=== PATIENT | male | born 1970 | race Caucasian/White ===

== ENCOUNTER 2020-01-25 19:45 | Emergency (ER) | payer SELFPAY ==
[~2020-01-25] VITALS: Ht 188 cm; Wt 128.8 kg
--- NOTE | 2020-01-25 20:03 | Emergency Department Note ---
History of Present Illnes History of Present Illness Chief Complaint: Skin Rash or Abscess History of Present Illness This is a 49 year old male presents to the ED for one day h/o of L LE discoloratoin. Onset (how long ago): day(s) (1) Radiation: Reports non-radiation Severity: moderate Onset quality: sudden Duration (how long): day(s) (1) Timing of current episode: constant Progression: worsening Chronicity: new Context: Denies recent illness Relieving factors: none Exacerbating factors: none Associated symptoms: Denies denies other symptoms, Denies confusion, Denies chest pain, Denies cough, Denies diaphoresis, Denies fever/chills, Denies headaches, Denies loss of appetite, Denies malaise, Denies nausea/vomiting, Denies rash, Denies seizure, Denies shortness of breath, Denies syncope, Denies weakness, Denies other Treatments prior to arrival: none Past Medical/Family History Physician Review I have reviewed the patient's past medical and family history. Any updates have been documented here. Past Medical History Recent Fever: No Clinical Suspicion of Infectio: Yes Past Medical History: Hypertension Past Surgical History: None Social History Smoking Cessation: Current every day smoker Alcohol Use: Occasional Any Illegal Drug Use: No Physically hurt or threatened: No Other Any Pre-Existing Lines (PICC,: No Review of Systems Review of Systems Constitutional: Reports fever EENTM: Reports no symptoms Cardiovascular: Reports no symptoms Respiratory: Reports no symptoms Gastrointestinal: Reports no symptoms Genitourinary: Reports no symptoms Musculoskeletal: Reports no symptoms Integumentary: Reports change in color Neurological: Reports no symptoms Psychological: Reports no symptoms Endocrine: Reports no symptoms Hematological/Lymphatic: Reports no symptoms Physical Exam Related Data Allergies: Coded Allergies: No Known Drug Allergies (Verified Allergy, Unknown, 01/25/20) Triage Vital Signs Vital Signs Date Time Temp Pulse Resp B/P (MAP) Pulse Ox O2 Delivery O2 Flow Rate FiO2 01/25/20 19:51 98.6 106 18 143/94 96 Room Air Vital signs reviewed: Yes Physical Exam CONSTITUTIONAL HENT EYES NECK PULMONARY CARDIOVASCULAR GASTROINTESTINAL GENITOURINARY SKIN MUSCULOSKELETAL NEUROLOGICAL PSYCHOLOGICAL Results Laboratory Lab results reviewed: Yes Laboratory comments WBC 13.5 CMP : wnl Assessment & Plan Medical Decision Making MDM Diff dX : cellulitis, allergic rxn, meningicoccemia. sepsis Assessment & Plan Final Impression: (1) Cellulitis of left lower extremity Depart Disposition: HOME, SELF-CARE GUS ABARCA DO Jan 25, 2020 20:03
[2020-01-25] MEDS ORDERED: PIPER-TAZ 3.375 GM 50 ML IV STA (20:05)
[2020-01-25] MEDS ORDERED: PIPER-TAZ 3.375 GM 50 ML ONE (20:36)
[2020-01-25] MEDS ORDERED: MORPHINE SULFATE INJ 4 MG/ML INJ 1ML IV STA (21:43)
[2020-01-25] MEDS ORDERED: ONDANSETRON HCL INJ 2MG/ML 2ML 2 MG/ML VIAL IV STA (21:43)
--- NOTE | 2020-01-25 21:43 | NUR ---
PT'S RIDE ARRIVED. INFORMED.
--- NOTE | 2020-01-25 21:45 | NUR ---
PT STATES HAS HAD MORPHINE BEFORE WITHOUT DIFF.
[2020-01-25] MEDS ORDERED: ONDANSETRON HCL INJ 2MG/ML 2ML 2 MG/ML VIAL ONE (21:52)
[2020-01-25 21:59] VITALS: BP 142/93
== END 2020-01-25 22:04 | disposition home or self-care (01) ==
LOC: FSED 20:10
DX: L03.116 Cellulitis of left lower limb (principal); I10 Essential (primary) hypertension; F17.210 Nicotine dependence, cigarettes, uncomplicated
CPT/HCPCS: 80053; 85025; 96365; 96374; 96376; 99283; J2270; J2405; J2543